=== PATIENT | male | born 1965 | race Caucasian/White ===

== ENCOUNTER → 2020-08-27 | Outpatient (CLI) | payer OTHER ==
--- NOTE | 2020-08-27 16:46 | KCIC ---
EXAM: CHEST PA LATERAL 08/27/2020 12:00 AM CLINICAL INDICATION: Shortness of breath, fatigue, positive Covid test COMPARISON: None TECHNIQUE: PA and lateral views of the chest FINDINGS: The heart and mediastinum are normal. Lungs are clear. No consolidation, pleural effusion, or pneumothorax. Pulmonary vascularity is normal. There are bridging osteophytes throughout the thoracic spine. IMPRESSION: No acute cardiopulmonary abnormality. Electronically signed by: Anisha Burnham MD (08/27/2020 3:34 PM) [id number]
== END ==
LOC: KCIC 14:48
PROVIDERS: ATTEND Family Medicine
DX: R06.02 Shortness of breath (principal); M25.78 Osteophyte, vertebrae
CPT/HCPCS: 71046

== ENCOUNTER 2020-11-29 12:10 | Emergency (ER) | payer OTHER ==
[~2020-11-29] VITALS: Ht 175.3 cm; Wt 108.0 kg
--- NOTE | 2020-11-29 12:29 | PHYS DOC ---
General Adult EDM: Chief Complaint: OTHER COMPLAINTS HPI: HPI: Patient is a 55 year old male with history of prediabetes, hypertension, hyperlipidemia presents emergency department shortness of breath. Patient was here in the hospital getting outpatient CAT scan of the chest ordered by assembler trim. He reports he has had shortness of breath since July when he was diagnosed with COVID. CTA was performed. He was supposed to get stress echocardiogram done after that. Patient was found to have pulmonary embolisms in the bilateral lungs. Patient reports symptoms have not changed. The radiologist told him to come to the emergency department. No chest pain nausea vomiting fever chills cough numbness weakness syncope headache. Patient is not a smoker. Denies drugs or alcohol. CTA chest was ordered by assembler trim Dr. Callahan. Review of Systems: Review of Systems: Review of Systems: Constitutional: Denies fever or chills Eyes: Denies redness or eye pain HENT: Denies nasal congestion or sore throat Respiratory: Denies cough positive for shortness of breath Cardiovascular: Denies chest pain or palpitations GI: denies abdominal pain and nausea, denies vomiting or diarrhea : Denies dysuria or hematuria Musculoskeletal: Denies back pain or joint pain Integument: Denies rash or skin lesions Neurologic: Denies headache, focal weakness or sensory changes Heart Score: C/O Chest Pain: No Allergies: Allergies: Allergies Coded Allergies Type Severity Reaction Last Updated Verified No Known Drug Allergies 11/29/20 No Physical Exam: PE: *GENERAL APPEARANCE: Awake and alert. Cooperative. No acute distress. Non toxic appearing. HEAD: Normocephalic. Atraumatic. EYES: EOM's grossly intact. Sclera anicteric. Conjunctiva clear ENT:. Airway patent. Mucous membranes moist. No trismus. Tolerating secretions. NECK: Supple. Trachea midline. HEART: Regular rate and rhythm. Radial pulses 2+. Good capillary refill. LUNGS: Respirations unlabored. Clear to auscultation bilaterally. No rales, rhonchi, wheezing or retractions. ABDOMEN: Soft. Non-tender. No guarding or rebound. No CVA tenderness. No palpable or pulsatile mass. EXTREMITIES: No acute deformities. No edema, erythema or calf tenderness. SKIN: Warm and dry. No rash. NEUROLOGICAL: Alert and oriented x3. No gross neurological deficits. Moves all 4 extremities spontaneously. PSYCHIATRIC: Normal mood. EKG: EKG: [] EKG interpretation shows normal sinus rhythm ventricular rate of 60 bpm. SC interval 166 ms. QRS 102 ms. QTc [address] segment elevations Radiology/Procedures: Radiology/Procedures: PROCEDURE: CHEST PA & LATERAL EXAM: CHEST PA LATERAL 08/27/2020 12:00 AM CLINICAL INDICATION: Shortness of breath, fatigue, positive Covid test COMPARISON: None TECHNIQUE: PA and lateral views of the chest FINDINGS: The heart and mediastinum are normal. Lungs are clear. No consolidation, pleural effusion, or pneumothorax. Pulmonary vascularity is normal. There are bridging osteophytes throughout the thoracic spine. IMPRESSION: No acute cardiopulmonary abnormality. Electronically signed by: Anisha Burnham MD (08/27/2020 3:34 PM) [id number] DICTATED and SIGNED BY: ANISHA BURNHAM MD DATE: 08/27/20 [id number] PROCEDURE: CT ANGIOGRAPHY CHEST EXAM: CT angiography of the chest with intravenous contrast. HISTORY: Dyspnea. TECHNIQUE: Computed tomographic images of the chest were obtained following the administration of intravenous contrast according to angiography protocol. Multiplanar reformatting was performed and three dimensional maximum intensity projection images were obtained. *One or more of the following individualized dose reduction techniques were utilized for this examination: 1. Automated exposure control. 2. Adjustment of the mA and/or kV according to patient size. 3. Use of iterative reconstruction technique. COMPARISON: None. FINDINGS: There are right greater than left lower lobe pulmonary emboli. No saddle embolus is seen. There is no evidence of right heart strain. There is no evidence of pulmonary artery hypertension. The heart is normal in size. The aorta is normal in caliber. There is a standard aortic arch branching pattern. There are prominent mediastinal and hilar lymph nodes. These are likely physiologic or reactive in etiology. There is no pneumothorax or pleural effusion. There is posterior dependent and basilar atelectasis. There are a few calcified granulomas. There is no suspicious pulmonary nodule. There is no infiltrate. There is a 2.4 cm hypodense lesion within the left hepatic lobe, the attenuation of which favors a cyst. There are splenic granulomas. There are degenerative changes involving the spine. This includes bridging and partially bridging anterior osteophytes throughout the majority of the thoracic levels. There is no acute osseous finding. IMPRESSION: 1. Right greater than left lower lobe pulmonary emboli. 2. 2.4 cm hypodense lesion within the left hepatic lobe, the attenuation which favors a cyst. Nonemergent liver sonography can be performed to confirm benignity. Findings were discussed with Dr. Callahan 1150 hours on 11/29/2020. The patient was instructed to proceed to the emergency department. Electronically signed by: Maria L Ivan MD (11/29/2020 11:50 AM) [id number] DICTATED and SIGNED BY: MARIA L IVAN MD DATE: 11/29/20 [id number] 0 PROCEDURE: VENOUS LOWER EXT BILATERAL EXAM: Bilateral lower extremity venous Doppler sonogram. HISTORY: Pain and swelling. TECHNIQUE: Lau scale and color Doppler sonographic evaluation of the bilateral lower extremity veins with spectral waveform analysis was performed. FINDINGS: There is normal color flow, normal compressibility and there are normal spectral waveforms in the common femoral, superficial femoral, popliteal, posterior tibial and greater saphenous veins. IMPRESSION: No Doppler evidence of lower extremity deep venous thrombosis. Electronically signed by: Maria L Ivan MD (11/29/2020 5:24 PM) [id number] DICTATED and SIGNED BY: MARIA L IVAN MD DATE: 11/29/20 [id number] LEFT VENTRICLE The left ventricle is normal size. There is normal left ventricular wall thickness. The left ventricular systolic function is normal and the ejection fraction is within normal range. The Ejection Fraction is 55-60%. There is normal LV segmental wall motion. Transmitral Doppler flow pattern is Grade I- abnormal relaxation pattern. RIGHT VENTRICLE The right ventricle is normal size. The right ventricular systolic function is normal. ATRIA The left atrium size is normal. The right atrium size is normal. The interatrial septum is intact with no evidence for an atrial septal defect or patent foramen ovale as noted on 2-D or Doppler imaging. AORTIC VALVE The aortic valve is calcified but opens well. Doppler and Color Flow revealed t race aortic regurgitation. There is no significant aortic valvular stenosis. MITRAL VALVE The mitral valve is calcified but opens well. There is no evidence of mitral valve prolapse. There is no mitral valve stenosis. Doppler and Color Flow revealed no mitral valve regurgitation noted. TRICUSPID VALVE The tricuspid valve is normal in structure and function. Doppler and Color Flow revealed trace tricuspid regurgitation. The PA pressure was estimated at 26 mmHg. There is no tricuspid valve stenosis. PULMONIC VALVE The pulmonic valve is not well visualized. Doppler and Color Flow revealed trace to mild pulmonic valvular regurgitation. There is no pulmonic valvular stenosis. GREAT VESSELS The aortic root is normal in size. The ascending aorta is normal in size. The IVC was not visualized. PERICARDIAL EFFUSION There is no evidence of significant pericardial effusion. Critical Notification Critical Value: No <Conclusion> The left ventricle is normal size. The left ventricular systolic function is normal and the ejection fraction is within normal range. The Ejection Fraction is 55-60%. Doppler and Color Flow revealed trace aortic regurgitation. There is no significant aortic valvular stenosis. Doppler and Color Flow revealed no mitral valve regurgitation noted. Doppler and Color Flow revealed trace tricuspid regurgitation. The PA pressure was estimated at 26 mmHg. Doppler and Color Flow revealed trace to mild pulmonic valvular regurgitation. Signed by : Marely Arango MD Electronically Approved : 11/29/2020 16:38:37 DICTATED and SIGNED BY: MARELY ARANGO MD DATE: 11/29/20 [id number] 0 Course & Med Decision Making: Course & Med Decision Making Medical decision making: This is a 55-year-old male presents with shortness of breath for the past several months. This has been ongoing since he had Covid. He was seen by the assembler trim and outpatient studies were ordered. CTA of the chest was done today that showed bilateral pulmonary embolism. Therefore he was sent to the emergency department. CT was reviewed. I did speak with Dr. Callahan, assembler trim who ordered the study. He came to the emergency department to evaluate the patient. He recommends echocardiogram and ultrasound of bilateral lower extremities to rule out large clot burden or right ventricular heart strain. If normal feels patient can be discharged as an outpatient. We discussed oral anticoagulants. Here today patient's laboratory evaluation unremarkable. Ultrasound showed no evidence of DVT. No right heart strain on echocardiogram. No wall motion abnormalities. Ejection fraction 55 to 60%. Patient's vital signs have been stable throughout the's emergency department visit. He is not tachycardic. His oxygen saturation is 95 to 98% on room air. He appears in no acute respiratory distress. Patient does have a family physician that he follows with. He has an appointment on December 02. I had lengthy discussion with patient about discharge. Patient feels very comfortable with this plan and would prefer to go home. I discussed the Xarelto with this patient. We will prescribe 15 mg twice daily for 21 days. He is then to start taking 20 mg daily. I did write this care plan down with the patient. He understands. He is given prescriptions but also given samples from cardiology. He is instructed only to take 15 mg twice daily for 21 days only. And then transition to 20 mg daily. He understands the instructions from the prescriptions given. He is to discuss this further with family physician. I did speak with Dr. Wilson, instrumentation and control technician for Dr. Candelaria. I explained the patient's symptoms CT findings and plan for home discharge anticoagulation. He will make Dr. Candelaria aware. Feels this is reasonable. Patient understands if symptoms worsen at any point he is to return to the emergency department. If he is not getting better he needs to return. Patient is agreeable to plan and feels comfortable. The patient is given strict emergency department return prec autions and follow up information. They express a verbal understanding of my instructions. The patient is aware of any labs and imaging. All questions are answered and patient is stable at the time of discharge. Dragon Disclaimer: Drag[employer]um Disclaimer: This electronic medical record was generated, in whole or in part, using a voice recognition dictation system. Departure Departure Impression: Primary Impression: Pulmonary embolism Additional Impression: Liver lesion Disposition: 01 DC HOME SELF CARE/HOMELESS Condition: GOOD Referrals: Cyndie CANDELARIA MD (PCP) Please keep your appointment on December 02. Please return to the emergency department if you have any other concerns or symptoms worsen at any time. Please keep your appointment with the car Patient Instructions: Pulmonary Embolus Scripts Rivaroxaban (XARELTO) 20 Mg Tablet 1 TAB PO DAILY for 30 Days, #30 TAB 0 Refills with food Do Not take until you are finished with the prescription for xaretlo that is 15mg BID for 21 days (12/21/2020). Prov: DONNIE BARR DO 11/29/20 Rivaroxaban (XARELTO) 15 Mg Tablet 1 TAB PO BID for 21 Days, #42 TAB 0 Refills Prov: DONNIE BARR DO 11/29/20 DONNIE BARR DO Nov 29, 2020 12:29
[2020-11-29 12:59] LABS: BASO % 0 % (0-3); EOS # 0.2 x10^3/uL (0.0-0.7); EOS % 3 % (0-3); HEMATOCRIT 45.8 % (39.0-53.0); HEMOGLOBIN 15.6 g/dL (13.0-17.5); LYMPH # 1.8 x10^3/uL (1.0-4.8); LYMPH % 27 % (24-48); MEAN CORPUSCULAR HEMOGLOBIN 30 pg (25-35); MEAN CORPUSCULAR HGB CONC 34 g/dL (31-37); MEAN CORPUSCULAR VOLUME 88 fL (79-100); MONO % 15 % (0-9); NEUT # 3.8 x10^3/uL (1.8-7.7); NEUT % 55 % (31-73); PLATELET COUNT 200 x10^3/uL (140-400); RED BLOOD COUNT 5.19 x10^6/uL (4.30-5.70); RED CELL DISTRIBUTION WIDTH 13.3 % (11.5-14.5); WHITE BLOOD COUNT 6.9 x10^3/uL (4.0-11.0)
[2020-11-29 13:08] LABS: PROTHROMBIN TIME PATIENT 12.5 SEC (11.7-14.0)
[2020-11-29 13:10] LABS: CREATININE 1.1 mg/dL (0.7-1.3); GFR 69.2; POTASSIUM 4.3 mmol/L (3.5-5.1)
[2020-11-29 13:15] LABS: ALBUMIN 3.6 g/dL (3.4-5.0); ALBUMIN/GLOBULIN RATIO 1.1 (1.0-1.7); TOTAL BILIRUBIN 0.4 mg/dL (0.2-1.0); TOTAL PROTEIN 6.9 g/dL (6.4-8.2)
--- NOTE | 2020-11-29 13:42 | EKG ---
[facility] [address] [place] [address] Test Date: 2020-11-29 Test Time: 12:34:15 Pat Name: NED GUTIERREZ Department: Room: Gender: [employer] Operator: : [id number] Requested By: DONNIE BARR Order Number: [id number] Reading MD: Measurements Intervals [place] Rate: 60 P: 29 UT: 166 QRS: 49 QRSD: 102 T: 48 QT: 416 QTc: 420 Interpretive Statements SINUS RHYTHM NORMAL ECG RI6.02 No previous ECG available for comparison
--- NOTE | 2020-11-29 16:39 | CARD ---
MR#: [id number] Date of Study: 11/29/2020 Ordering Physician: DONNIE BARR, Referring Physician: DONNIE BARR, Tech: Keyla Ramsey [facility] APPROVED REPORT EXAM: Two-dimensional and M-mode echocardiogram with Doppler and color Doppler. Other Information Quality : Good INDICATION Dyspnea Pulmonary Embolism 2D DIMENSIONS Left Atrium(2D)3.5 (1.6-4.0cm)IVSd1.1 (0.7-1.1cm) Aortic Root(2D)3.8 (2.0-3.7cm)LVDd5.4 (3.9-5.9cm) LVOT Diameter2.2 (1.8-2.4cm)PWd1.1 (0.7-1.1cm) LVDs3.8 (2.5-4.0cm)FS (%) 29.1 % SV77.6 mlLVEF(%)55.4 (>50%) M-Mode DIMENSIONS Aortic Cusp Exc2.67 (1.5-2.0cm) Aortic Valve AoV Peak John.111.6cm/sAoV VTI21.3cm AO Peak GR.5.0mmHgLVOT VTI 16.48cm AO Mean GR.3mmHgAVA (VTI)2.80cm2 Mitral Valve MV E Cdltaetn31.4cm/sMV DECEL NIAM027ga MV A Piphgqxg27.4cm/sE/A Ratio0.9 TDI Medial E' P. V6.44cm/sE/Medial E'10.6 Tricuspid Valve TR P. Ifxwymbo738gp/sRAP JBRUOTWH4cxRl TR Peak Gr.92nuJyJGNK62liOj Pulmonary Vein S1 Kxitdsxp80.2cm/sS2 Aluntmhb10.41cm/s D2 Iscvcqdd03.4cm/s LEFT VENTRICLE The left ventricle is normal size. There is normal left ventricular wall thickness. The left ventricu lar systolic function is normal and the ejection fraction is within normal range. The Ejection Fracti on is 55-60%. There is normal LV segmental wall motion. Transmitral Doppler flow pattern is Grade I-a bnormal relaxation pattern. RIGHT VENTRICLE The right ventricle is normal size. The right ventricular systolic function is normal. ATRIA The left atrium size is normal. The right atrium size is normal. The interatrial septum is intact wit h no evidence for an atrial septal defect or patent foramen ovale as noted on 2-D or Doppler imaging. AORTIC VALVE The aortic valve is calcified but opens well. Doppler and Color Flow revealed trace aortic regurgitat ion. There is no significant aortic valvular stenosis. MITRAL VALVE The mitral valve is calcified but opens well. There is no evidence of mitral valve prolapse. There is no mitral valve stenosis. Doppler and Color Flow revealed no mitral valve regurgitation noted. TRICUSPID VALVE The tricuspid valve is normal in structure and function. Doppler and Color Flow revealed trace tricus pid regurgitation. The PA pressure was estimated at 26 mmHg. There is no tricuspid valve stenosis. PULMONIC VALVE The pulmonic valve is not well visualized. Doppler and Color Flow revealed trace to mild pulmonic soto vular regurgitation. There is no pulmonic valvular stenosis. GREAT VESSELS The aortic root is normal in size. The ascending aorta is normal in size. The IVC was not visualized. PERICARDIAL EFFUSION There is no evidence of significant pericardial effusion. Critical Notification Critical Value: No <Conclusion> The left ventricle is normal size. The left ventricular systolic function is normal and the ejection fraction is within normal range. The Ejection Fraction is 55-60%. Doppler and Color Flow revealed trace aortic regurgitation. There is no significant aortic valvular stenosis. Doppler and Color Flow revealed no mitral valve regurgitation noted. Doppler and Color Flow revealed trace tricuspid regurgitation. The PA pressure was estimated at 26 mmHg. Doppler and Color Flow revealed trace to mild pulmonic valvular regurgitation. Signed by : Cam Arango MD Electronically Approved : 11/29/2020 16:38:37
--- NOTE | 2020-11-29 17:27 | RAD ---
EXAM: Bilateral lower extremity venous Doppler sonogram. HISTORY: Pain and swelling. TECHNIQUE: Lau scale and color Doppler sonographic evaluation of the bilateral lower extremity veins with spectral waveform analysis was performed. FINDINGS: There is normal color flow, normal compressibility and there are normal spectral waveforms in the common femoral, superficial femoral, popliteal, posterior tibial and greater saphenous veins. IMPRESSION: No Doppler evidence of lower extremity deep venous thrombosis. Electronically signed by: Maria L Lester MD (11/29/2020 5:24 PM) [id number]
[2020-11-29] MEDS ORDERED: RIVAROXABAN 15 MG TABLET. PO ONE (18:15)
[2020-11-29] MEDS ORDERED: RIVA15TA PO (18:22)
[2020-11-29] MEDS ORDERED: RIVA20TA2 PO ×2 (18:22→18:27)
[2020-11-29 18:38] VITALS: BP 136/77
--- NOTE | 2020-11-29 23:35 | PDOC ---
Provider Note Date of Service: DATE: 11/29/20 TIME: 23:33 Provider Note Mr. Ann was seen in the office 2 weeks ago for dyspnea after prior covid. Appropriate studies ordered and CTA revealed P.E. Echo unremarkable. Today when seen in ER he denies any chest pain, dyspnea is persistent. He likely needs anticoagulation for 3-6 months and reassess his dyspnea if not improved with stress testing, otherwise, given normal EF I suspect dyspnea is related to P.E. Suggest pulmonary referral for further evaluation. He already has routine f/u in the office. Discussed with ED physician. Patient knows to call our office if any new issues arise. Thanks Justifications for Admission Other Justification CARMELO VENEGAS MD Nov 29, 2020 23:35
== END 2020-11-29 18:44 | disposition home or self-care (01) ==
LOC: ER 12:10
DX: I26.99 Other pulmonary embolism without acute cor pulmonale (principal); K76.9 Liver disease, unspecified; I10 Essential (primary) hypertension; E78.5 Hyperlipidemia, unspecified
CPT/HCPCS: 36415; 80053; 85025; 85610; 85730; 93005; 93306; 93970; 99285-25

== ENCOUNTER → 2020-11-29 | Outpatient (CLI) | payer OTHER ==
[~2020-11-29] MED LIST: IOHEXOL 350 MG/ML 100 ML VIAL. IV ONE; RIVA15TA PO; RIVA20TA2 PO
--- NOTE | 2020-11-29 11:53 | RAD ---
EXAM: CT angiography of the chest with intravenous contrast. HISTORY: Dyspnea. TECHNIQUE: Computed tomographic images of the chest were obtained following the administration of int ravenous contrast according to angiography protocol. Multiplanar reformatting was performed and three dimensional maximum intensity projection images were obtained. *One or more of the following individualized dose reduction techniques were utilized for this examina tion: 1. Automated exposure control. 2. Adjustment of the mA and/or kV according to patient size. 3. Use of iterative reconstruction technique. COMPARISON: None. FINDINGS: There are right greater than left lower lobe pulmonary emboli. No saddle embolus is seen. T here is no evidence of right heart strain. There is no evidence of pulmonary artery hypertension. The heart is normal in size. The aorta is normal in caliber. There is a standard aortic arch branching p attern. There are prominent mediastinal and hilar lymph nodes. These are likely physiologic or reacti ve in etiology. There is no pneumothorax or pleural effusion. There is posterior dependent and basila r atelectasis. There are a few calcified granulomas. There is no suspicious pulmonary nodule. There i s no infiltrate. There is a 2.4 cm hypodense lesion within the left hepatic lobe, the attenuation of which favors a cyst. There are splenic granulomas. There are degenerative changes involving the spine . This includes bridging and partially bridging anterior osteophytes throughout the majority of the t horacic levels. There is no acute osseous finding. IMPRESSION: 1. Right greater than left lower lobe pulmonary emboli. 2. 2.4 cm hypodense lesion within the left hepatic lobe, the attenuation which favors a cyst. Nonemer gent liver sonography can be performed to confirm benignity. Findings were discussed with Dr. Callahan 1150 hours on 11/29/2020. The patient was instructed to proc eed to the emergency department. Electronically signed by: Maria L Lester MD (11/29/2020 11:50 AM) [id number]
== END ==
LOC: CT 11:25
PROVIDERS: ATTEND Internal Medicine Cardiovascular Disease
DX: I26.99 Other pulmonary embolism without acute cor pulmonale (principal); K76.9 Liver disease, unspecified
CPT/HCPCS: 71275

== ENCOUNTER → 2021-08-03 | Outpatient (CLI) | payer OTHER ==
[2021-08-03 07:46] LABS: CALCIUM 8.9 mg/dL (8.5-10.1); CREATININE 0.9 mg/dL (0.7-1.3); POTASSIUM 4.3 mmol/L (3.5-5.1)
--- NOTE | 2021-08-03 11:33 | RAD ---
EXAM: ULTRASOUND ABDOMEN LIMITED CLINICAL HISTORY: LIVER MASS SEEN ON CT COMPARISON: CT 08/03/2021. TECHNIQUE: Limited ultrasound examination of the right upper quadrant of the abdomen was performed. FINDINGS: The head and body of the pancreas are unremarkable. The tail is obscured by intestinal gas.. Liver: 18.4 cm in length. Increased hepatic echogenicity relative to the right kidney consistent wi th hepatic steatosis.. 2.6 cm cyst is seen within the left hepatic lobe. Flow seen within the portal veins. Biliary: Cholecystectomy clips are seen. Common bile duct measures 1 mm. Right Kidney: 12.3 cm in bipolar length. Normal renal cortical echotexture and thickness. No focal re nal lesion, shadowing renal calculus or hydronephrosis. Visualized portions of the abdominal aorta and inferior vena cava are unremarkable. There is no free fluid in the subhepatic space. IMPRESSION: 1. 2.6 cm anechoic cyst in the left hepatic lobe. This corresponds to the finding seen on prior CT. 2. Hepatomegaly. Fatty liver. Electronically signed by: Marquise Garcia MD (08/03/2021 11:31 AM) [facility]
--- NOTE | 2021-08-03 12:06 | RAD ---
EXAM: CT chest with contrast - pulmonary embolus protocol CLINICAL HISTORY: Reason: f/u pulmonary emboli COMPARISON: 11/29/2020. TECHNIQUE: CT of the chest following the administration of intravenous contrast during the pulmonary arterial phase. Axial, coronal and sagittal reformatted images were generated including MIP images. ---PQRS compliance statement - One or more of the following individualized dose reduction techniques were utilized for this study: 1. Automated exposure control 2. Adjustment of the mA and/or kV according to patient size 3. Use of iterative reconstruction technique--- FINDINGS: CHEST: Diagnostic quality: Suboptimal. Pulmonary emboli: No acute pulmonary emboli to the level of the segmental branches. More peripheral vessels are not well assessed. Right heart strain: None Pulmonary arteries: Normal in caliber. Heart is not enlarged. Coronary calcifications are seen. No pericardial effusion. No pleural effusion . No pneumothorax. No mediastinal or hilar lymphadenopathy. No axillary lymphadenopathy. Groundglass opacities dependently lower lobes likely atelectasis. No suspicious lung nodule or mass. Visualized Upper abdomen: Left hepatic lobe cyst is again seen. Low-density exophytic lesion upper p ole left kidney partially profiled measuring 1 cm. This was not included in the ffsjz-cf-rpja on the prior CT. Bones: No aggressive osseous lesion is seen. Multilevel bridging anterior endplate osteophytes are se en. IMPRESSION: 1. No new pulmonary emboli are seen to the level of the segmental branches. The previously seen pulm onary emboli are not definitely see on this examination although there is suboptimal contrast bolus. Electronically signed by: Marquise Garcia MD (08/03/2021 12:04 PM) [id number]
== END ==
LOC: US 06:41
PROVIDERS: ATTEND Internal Medicine Cardiovascular Disease
DX: R16.0 Hepatomegaly, not elsewhere classified (principal); K76.0 Fatty (change of) liver, not elsewhere classified; I26.99 Other pulmonary embolism without acute cor pulmonale; I25.10 Atherosclerotic heart disease of native coronary artery without angina pectoris; R91.8 Other nonspecific abnormal finding of lung field; K76.89 Other specified diseases of liver; Z90.49 Acquired absence of other specified parts of digestive tract
CPT/HCPCS: 36415; 71275; 76705; 80048; Q9967